=== PATIENT | male | born 1995 | race Caucasian/White ===

== ENCOUNTER 2016-08-29 19:14 | Inpatient (IN) | payer MEDICAID, OTHER ==
[~2016-08-29] VITALS: Ht 180.3 cm; Wt 65.0 kg
[2016-08-29] VITALS (7 sets, daily range): BP systolic 88–149; BP diastolic 57–77; PULSE 87–133; RESP 18–20; TEMP 97.9–98.1; O2SAT 95–100
[~2016-08-29 19:14] MED LIST: IBUP-238 PO; ZITH250T PO
[2016-08-29] MEDS ORDERED: MORPHINE SULFATE 4 MG/ML INJ IV ONE (19:15)
[2016-08-29] MEDS ORDERED: SODIUM CHLORIDE 0.9% FLUSH 10 ML FLUSH IVF PRN (19:15)
[2016-08-29] MEDS ORDERED: SODIUM CHLOR 0.9% 1000 ML INJ 1,000 ML IV SCH (19:15)
[2016-08-29] MEDS ORDERED: MORPHINE SULFATE 8 MG/ML INJ ONE (19:19)
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
[2016-08-29] MEDS ORDERED: IOHEXOL 350 MG/ML 10 ML VIAL (for RAD DIAG) IV ONE (19:52)
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
[2016-08-29 20:17] LABS: AUTOMATED NEUTROPHIL # 10.6 TH/MM3 (1.8-7.7); BASOPHIL % 0.3 % (0.0-2.0); EOSINOPHIL # 0.1 TH/MM3 (0-0.4); EOSINOPHIL % 0.5 % (0.0-4.0); HEMATOCRIT 44.3 % (39.0-51.0); HEMO FLAGS DIFF FINAL; LYMPH % 16.1 % (9.0-44.0); LYMPHOCYTE # 2.2 TH/MM3 (1.0-4.8); MEAN CELL VOLUME 86.4 FL (80.0-100.0); MEAN CORPUSCULAR HEMOGLOBIN 29.3 PG (27.0-34.0); MEAN CORPUSCULAR HGB CONC 33.9 % (32.0-36.0); MONO % 5.6 % (0.0-8.0); NEUT % 77.5 % (16.0-70.0); PLATELET COUNT 258 TH/MM3 (150-450); RED BLOOD COUNT 5.13 MIL/MM3 (4.50-5.90); RED CELL DISTRIBUTION WIDTH 13.3 % (11.6-17.2); WHITE BLOOD COUNT 13.7 TH/MM3 (4.0-11.0)
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
[2016-08-29 20:23] LABS: BICARBONATE 23.4 MEQ/L (21.0-32.0); POTASSIUM 3.3 MEQ/L (3.5-5.1)
[2016-08-29] MEDS ORDERED: LIDOCAINE 1%/EPINEPHrine 1:100,000 SOLN 20 ML VIAL INFIL ONE ×2 (20:45)
[2016-08-29 21:02] LABS: APTT (PATIENT) 25.5 SEC (24.3-30.1); PROTHROMBIN TIME - PATIENT 10.8 SEC (9.8-11.6)
[2016-08-29 21:07] LABS: INDIRECT BILIRUBIN 0.6 MG/DL (0.0-0.8); TOTAL BILIRUBIN ADULT 0.8 MG/DL (0.2-1.0)
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
[2016-08-29] MEDS ORDERED: MORPHINE SULFATE 8 MG/ML INJ IV PUSH ONE (22:00)
[2016-08-29 22:03] LABS: AMPHETAMINE, URINE NEG (NEG); BARBITURATES, URINE NEG (NEG); COCAINE, URINE POS (NEG)
[2016-08-29] MEDS ORDERED: ONDANSETRON HCL 4 MG/2 ML VIAL ONE (23:26)
[2016-08-29] MEDS ORDERED: ONDANSETRON HCL 4 MG/2 ML VIAL IV PUSH ONE (23:30)
[2016-08-29] MEDS ORDERED: oxyCODONE/ACETAMINOPHEN 5 MG/325 MG TAB PO PRN (23:45)
[2016-08-29] MEDS ORDERED: HYDROmorphone HCL PF 1 MG/ML VIAL IV PRN (23:45)
[2016-08-29] MEDS: oxyCODONE/ACETAMINOPHEN 5 MG/325 MG TAB PO PRN (23:57)
[2016-08-30] MEDS: oxyCODONE/ACETAMINOPHEN 5 MG/325 MG TAB PO PRN ×3 (03:35→13:28)
[2016-08-30] MEDS ORDERED: SODIUM CHLORIDE 0.9% FLUSH 10 ML FLUSH IV FLUSH PRN (03:45)
[2016-08-30] MEDS ORDERED: MAGNESIUM HYDROXIDE SUSP 30 ML CUP PO PRN (03:45)
[2016-08-30] MEDS ORDERED: ONDANSETRON HCL 4 MG/2 ML VIAL IV PRN (03:45)
[2016-08-30] MEDS ORDERED: ENALAPRILAT 1.25 MG/ML VIAL IV PRN (03:45)
[2016-08-30] MEDS: SODIUM CHLOR 0.9% 1000 ML INJ 1,000 ML IV SCH ×2 (05:12→13:53)
[2016-08-30] MEDS ORDERED: PANTOPRAZOLE SODIUM 40 MG VIAL IVP SCH (06:00)
[2016-08-30 08:00] VITALS: BP 102/62; PULSE 64; RESP 24; TEMP 97.6; O2SAT 93
[2016-08-30] MEDS ORDERED: DOCUSATE SODIUM 100 MG CAP PO SCH (09:00)
[2016-08-30 10:07] LABS: AUTOMATED NEUTROPHIL # 8.1 TH/MM3 (1.8-7.7); BASOPHIL % 0.2 % (0.0-2.0); EOSINOPHIL # 0.1 TH/MM3 (0-0.4); EOSINOPHIL % 1.1 % (0.0-4.0); HEMATOCRIT 41.6 % (39.0-51.0); LYMPH % 13.6 % (9.0-44.0); LYMPHOCYTE # 1.5 TH/MM3 (1.0-4.8); MEAN CELL VOLUME 85.8 FL (80.0-100.0); MEAN CORPUSCULAR HEMOGLOBIN 29.8 PG (27.0-34.0); MEAN CORPUSCULAR HGB CONC 34.7 % (32.0-36.0); MONO % 11.3 % (0.0-8.0); NEUT % 73.8 % (16.0-70.0); PLATELET COUNT 181 TH/MM3 (150-450); RED BLOOD COUNT 4.84 MIL/MM3 (4.50-5.90); RED CELL DISTRIBUTION WIDTH 13.3 % (11.6-17.2); WHITE BLOOD COUNT 10.9 TH/MM3 (4.0-11.0)
[2016-08-30 10:18] LABS: HEMO FLAGS AUTO DIFF
[2016-08-30 10:23] LABS: AMYLASE 53 U/L (25-115)
[2016-08-30 10:25] LABS: ANION GAP 8 MEQ/L (5-15); AST (GOT) 62 U/L (15-39); BICARBONATE 24.5 MEQ/L (21.0-32.0); BLOOD UREA NITROGEN 13 MG/DL (7-18); CHLORIDE 106 MEQ/L (98-107); GLOMERULAR FILTRATION RATE 109 ML/MIN (>89); POTASSIUM 3.5 MEQ/L (3.5-5.1); SODIUM (NA) 138 MEQ/L (136-145)
[2016-08-30 10:29] LABS: ALKALINE PHOSPHATASE 68 U/L (45-117); ALT (GPT) 73 U/L (9-52); TOTAL BILIRUBIN ADULT 1.5 MG/DL (0.2-1.0)
[2016-08-30 10:58] LABS: SCAN/DIFF AUTO DIFF CONFIRMED
[2016-08-30] MEDS ORDERED: PERC5TAB12 PO (11:18)
[2016-08-30] MEDS ORDERED: diphenhydrAMINE HCL 50 MG/ML VIAL IV PRN (11:45)
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
[2016-08-30] MEDS ORDERED: ROBA500T PO (13:55)
[2016-08-30] MEDS ORDERED: METHOCARBAMOL 500 MG TAB PO SCH (14:00)
[2016-08-30 14:28] VITALS: RESP 18
[2016-08-30] MEDS ORDERED: WALKER WHEELS/F1 MIS (15:22)
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
== END 2016-08-30 16:39 | disposition home or self-care (01) | DRG 443 ==
LOC: NEPE 19:14 → NEDA 20:27 → N07A 08-30 00:30
PROVIDERS: ADMIT Surgery; ATTEND Surgery
PROC: 0HQKXZZ Repair Right Lower Leg Skin, External Approach (ICD-10-PCS; principal; 2016-08-29)
DX: S36.113A Laceration of liver, unspecified degree, initial encounter (principal); S81.011A Laceration without foreign body, right knee, initial encounter; F10.120 Alcohol abuse with intoxication, uncomplicated; Y93.89 Activity, other specified; Y99.9 Unspecified external cause status; Y90.6 Blood alcohol level of 120-199 mg/100 ml; V03.10XA Pedestrian on foot injured in collision with car, pick-up truck or van in traffic accident, initial encounter; Y92.9 Unspecified place or not applicable
CPT/HCPCS: 12002; 70450; 71010; 71260; 72125; 74177; 80048; 80053; 80076; 80307; 82150; 83690; 85025; 85610; 85730; 86850; 86900; 86901; 96361; 96374; C9113; J1200; J2270; J2405; J7030; Q9967